=== PATIENT | female | born 1945 | race Asian ===

== ENCOUNTER 2019-03-06 20:40 | Inpatient (IN) | payer OTHER ==
[~2019-03-06] VITALS: Ht 157.5 cm; Wt 58.1 kg
[2019-03-06 20:45] VITALS: BP 167/98
--- NOTE | 2019-03-06 20:46 | NUR ---
PT SAMANTA ALS. TAKEN TO BED 2
--- NOTE | 2019-03-06 20:50 | NUR ---
73Y FEMALE BIBA FOR SUDDEN ONSET, NON PROVOKED C/P X1 HOUR. PT ALSO C/O LEG HEAVINESS AND NUMBNESS. NO FACIAL DROP SLURRED SPEECH. PT SPEAKS ROMANSH CONTACTED SON SONJA WHO IS IN [place]. PT AWAKE AND ALERT, RR EVEN UNLABORED, GCS 15, EDMD MADE AWARE, WILL CONTINUE TO MONITOR CLOSELY. PMH HTN, "HEART PROBLEMS"
[2019-03-06 21:40] LABS: BASOPHILS % (AUTO) 0.7 % (0.0-2.0); EOSINOPHILS % (AUTO) 0.7 % (0.0-4.0); HEMATOCRIT 31.8 % (36-48); HEMOGLOBIN 10.3 g/dL (12.0-16.0); LYMPHOCYTES # (AUTO) 1.6 K/uL (2.5-16.5); LYMPHOCYTES % (AUTO) 27.6 % (20.5-51.1); MEAN CORPUSCULAR HEMOGLOBIN 32 pg (27-31); MEAN CORPUSCULAR HGB CONC 33 g/dL (33-37); MEAN CORPUSCULAR VOLUME 99.4 fL (80-94); MONOCYTES # (AUTO) 0.5 K/uL (0.8-1.0); MONOCYTES % (AUTO) 8.1 % (1.7-9.3); NEUTROPHILS # (AUTO) 3.5 K/uL (1.8-7.7); NEUTROPHILS % (AUTO) 62.9 % (42.2-75.2); PLATELET COUNT (AUTO) 187 K/uL (140-450); WHITE BLOOD COUNT (AUTO) 5.6 K/uL (4.8-10.8)
[2019-03-06 21:51] LABS: ANION GAP 11.8 (8-16); CARBON DIOXIDE 27.1 mmol/L (21-32); CHLORIDE 108 mmol/L (98-107); CREATININE 1.1 mg/dL (0.6-1.3); GLUCOSE 117 mg/dL (74-106); POTASSIUM 3.9 mmol/L (3.5-5.1); SODIUM SERUM 143 mmol/L (136-145); UREA NITROGEN, BLOOD 18 mg/dL (7-18)
[2019-03-06 21:58] LABS: ALBUMIN 3.6 g/dL (3.4-5.0); ASPARTATE AMINOTRANSFERASE 24 U/L (15-37); LIPASE 287 U/L (73-393); TOTAL BILIRUBIN 0.7 mg/dL (0.0-1.0)
[2019-03-06 22:21] LABS: CREATINE KINASE MB 2.9 ng/mL (0-3.6)
--- NOTE | 2019-03-06 23:58 | NUR ---
PT TO CT WITH RN
[2019-03-07] MEDS ORDERED: [UNRECOGNIZED DRUG - CODE] PO (00:23)
[2019-03-07] MEDS ORDERED: DOCU-299 PO (00:23)
[2019-03-07] MEDS ORDERED: ACET-1088 PO (00:23)
[2019-03-07] MEDS ORDERED: LOSA100T51 PO (00:23)
[2019-03-07] MEDS ORDERED: ASPI-1718 PO (00:23)
[2019-03-07] MEDS ORDERED: BACL10TA4 PO (00:23)
[2019-03-07] MEDS ORDERED: MELO-176 PO (00:23)
[2019-03-07] MEDS ORDERED: C,E,1CAP2 PO (00:23)
[2019-03-07] MEDS ORDERED: HYDR-733 PO (00:23)
[2019-03-07] MEDS ORDERED: RASA1TAB3 PO (00:23)
[2019-03-07] MEDS ORDERED: SAFI100T PO (00:23)
[2019-03-07] MEDS ORDERED: CARB1TAB40 PO (00:23)
[2019-03-07] MEDS ORDERED: BETH25TA47 PO (00:23)
[2019-03-07] MEDS ORDERED: ATOR20TA PO (00:23)
--- NOTE | 2019-03-07 01:00 | NUR ---
PT RETURN FROM CT
--- NOTE | 2019-03-07 02:20 | NUR ---
RECIEVED REPORT FORM TIARA DUBOIS. ASSUMED CARE OF PT AT THIS TIME. PT SITTING UPRIGHT. VSS AT THIS TIME. WILL CONTINUE TO MONITOR.
[2019-03-07] MEDS ORDERED: ONDANSETRON 4 MG/2 ML VIAL IVP PRN (03:15)
[2019-03-07] MEDS ORDERED: ACETAMINOPHEN 325 MG TAB PO PRN (03:15)
--- NOTE | 2019-03-07 03:40 | NUR ---
Patient will be admitted to care of Dr. Reyes. Admited to [facility]. Patient went to room 127B. Belongings list completed. Report to TIARA Ricketts. Transfer of care at this time.
[2019-03-07 03:42] LABS: CHOL/HDL RATIO 2.1 (1-4.5); FREE T4 (FREE THYROXINE) 1.06 ng/dL (0.76-1.46); MAGNESIUM 1.8 mg/dL (1.8-2.4); PHOSPHORUS 3.4 mg/dL (2.5-4.9); THYROID STIMULATING HORMONE 1.36 uIU/mL (0.34-3.74)
--- NOTE | 2019-03-07 03:45 | NUR ---
PT BROUGHT UP BY AMANDA WITH CINTIA MENJIVAR, PT WAS ASSISTED TO TOILET UPON REQUEST AND THEN ASSISTED BACK TO BED. SHE WAS PLACED ON FALLS PROTOCOL. SKIN INTACT AND NO S/S OF PAIN OR DISTRESS NOTED. V/S FOLLOWS T 97 P 78 R 18 B/P 158/79 02 99% ON ROOM AIR.
[2019-03-07 04:00] VITALS: BP 158/79
--- NOTE | 2019-03-07 04:10 | NUR ---
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 PT IS AWARE OF PERSON AND THAT SHE IS IN THE HOSPITAL, PT THOUGHT SHE WAS IN [place]. PT ORIENTED TO PLACE, HOWEVER SHE IS AWARE OF THE DATE AND TIME OF DAY, HOWEVER SHE HAS PERIODS OF REPEATING HERSELF AND HAVING SOME DIFFICULTIES ANSWERING QUESTIONS. PT DOES HAVE SKIN INTACT AND A 20G INTACT ON LEFT AC. BUT SHE DOES HAVE DIFFICULTY WALKING , PT STATES SHE USES A WALKER AT HOME. PT DENIES PAIN AT THIS TIME AND ALL REQUESTED NEEDS ATTENDED.
[2019-03-07 06:07] LABS: ANION GAP 12.5 (8-16); CARBON DIOXIDE 28.3 mmol/L (21-32); CHLORIDE 108 mmol/L (98-107); CREATININE 0.9 mg/dL (0.6-1.3); GLUCOSE 98 mg/dL (74-106); POTASSIUM 3.8 mmol/L (3.5-5.1); SODIUM SERUM 145 mmol/L (136-145); UREA NITROGEN, BLOOD 15 mg/dL (7-18)
[2019-03-07 06:13] LABS: MAGNESIUM 1.8 mg/dL (1.8-2.4)
--- NOTE | 2019-03-07 06:34 | NUR ---
PT IN BED SLEEPING NO S/S OF PAIN OR DISTRESS NOTED ALL FALLS PROTOCOL IN PLACE. AND CALL CHONG IN REACH.
[2019-03-07 06:37] LABS: EOSINOPHILS # (AUTO) 0.1 K/uL (0-0.4); EOSINOPHILS % (AUTO) 1.2 % (0.0-4.0); HEMATOCRIT 31.2 % (36-48); HEMOGLOBIN 10.1 g/dL (12.0-16.0); LYMPHOCYTES # (AUTO) 1.4 K/uL (2.5-16.5); LYMPHOCYTES % (AUTO) 28.3 % (20.5-51.1); MEAN CORPUSCULAR HEMOGLOBIN 33 pg (27-31); MEAN CORPUSCULAR HGB CONC 33 g/dL (33-37); MEAN CORPUSCULAR VOLUME 100.1 fL (80-94); MONOCYTES # (AUTO) 0.6 K/uL (0.8-1.0); MONOCYTES % (AUTO) 10.8 % (1.7-9.3); NEUTROPHILS % (AUTO) 58.7 % (42.2-75.2); PHOSPHORUS 3.2 mg/dL (2.5-4.9); PLATELET COUNT (AUTO) 187 K/uL (140-450); RED BLOOD CELL COUNT(AUTO) 3.11 MIL/uL (4.20-5.40); WHITE BLOOD COUNT (AUTO) 5.1 K/uL (4.8-10.8)
--- NOTE | 2019-03-07 07:04 | NUR ---
PT USED CALL CHONG FOR ASSISTANCE TO THE COMMODE AND BACK , PT IN STABLE CONDITION, PT ASSISTED BACK TO BED WITH CALL CHONG IN REACH, NO S/S OF PAIN OR DISTRES NOTED. WILL ENDORSE PLAN OF CARE, TO AM RELIEVING NURSE, PT INSTABLE CONDITION.
--- NOTE | 2019-03-07 07:25 | NUR ---
RECEIVED PT FROM SURVEILLANCE SYSTEMS ANALYST NURSE, MARCEL, PT IS ASLEEP AND LYING ON THE BED WITH SIDE RAILS UP AND CALL LIGHT WITHIN REACH, IV LINE ON THE LEFT AC G. 20 ON SALINE LOCK , RESPIRATION IS EVEN AND NO SIGN OF DISTRESS NOTED. WILL MONITOR PT.
[2019-03-07 08:00] VITALS: BP 154/82
--- NOTE | 2019-03-07 08:21 | NUR ---
PATIENT HAS BEEN SCREENED AND CATEGORIZED MODERATE NUTRITION RISK. PATIENT WILL BE SEEN WITHIN 3-5 DAYS OF ADMISSION. 03/09/19 03/11/[address]
[2019-03-07] MEDS ORDERED: VIT E PO SCH (09:00)
[2019-03-07] MEDS ORDERED: VITAMIN E 400 UNIT PO SCH (09:00)
[2019-03-07] MEDS ORDERED: CARBIDOPA/LEVODOPA 25/250 MG 1 TAB PO SCH ×2 (09:00→13:00)
[2019-03-07] MEDS ORDERED: [UNRECOGNIZED DRUG - OTHER] PO SCH (09:00)
[2019-03-07] MEDS: BETHANECHOL 25 MG TAB PO SCH (09:06)
[2019-03-07] MEDS: ASPIRIN 81 MG TAB.CHEW PO SCH (09:07)
[2019-03-07] MEDS: DOCUSATE SODIUM 100 MG GELCAP PO SCH ×2 (09:07→21:13)
[2019-03-07] MEDS: ATORVASTATIN 20 MG TAB PO SCH (09:07)
[2019-03-07] MEDS: hydrALAZINE 25 MG TAB PO SCH ×4 (09:08→21:13)
[2019-03-07] MEDS: HYDROcodone/APAP 7.5/325 MG 1 TAB PO PRN ×2 (09:08→13:32)
--- NOTE | 2019-03-07 09:08 | NUR ---
PT IS AWAKE AND ORAL MEDICATIONS WERE GIVEN, PARAMETERS CHECKED, AND PT TOLERATED IT. WILL MONITOR PT.
[2019-03-07] MEDS: LOSARTAN 50 MG TAB PO SCH (09:09)
[2019-03-07] MEDS ORDERED: COMMUNICATION ORDER MC SCH ×2 (09:15)
[2019-03-07] MEDS: VITAMIN E 200 IU CAPLF PO SCH (09:27)
[2019-03-07] MEDS ORDERED: [UNRECOGNIZED DRUG - OTHER] PO SCH (10:30)
[2019-03-07] MEDS ORDERED: OCUVITE SOFTGEL PO SCH (10:30)
[2019-03-07] MEDS ORDERED: RASAGILINE 1MG TAB PO SCH (10:30)
[2019-03-07 12:00] VITALS: BP 142/65
--- NOTE | 2019-03-07 12:16 | NUR ---
PER DR. MARTINEZ, DC PLAN IS FOR TOMORROW.
--- NOTE | 2019-03-07 12:49 | NUR ---
PT IS AWAKE AND EATING HER LUNCH, BP MEDICATION WAS GIVEN FOR BP OF 164/91, PULSE IS 101, OS SATURATION IS 95%. WILL MONITOR PT.
--- NOTE | 2019-03-07 13:15 | NUR ---
ECHO IS BEING DONE TO PT NOW.
[2019-03-07] MEDS: BACLOFEN 10 MG TAB PO PRN (13:31)
--- NOTE | 2019-03-07 13:32 | NUR ---
PT WAS GIVEN MUSCLE RELAXANT AND PAIN MEDICATIONS NOW.
--- NOTE | 2019-03-07 13:39 | NUR ---
ORAL MEDICATION WAS GIVEN TO PT NOW.
[2019-03-07] MEDS: LEVODOPA PO SCH ×2 (13:40→17:25)
[2019-03-07] MEDS: CARBIDOPA PO SCH ×2 (13:40→17:25)
--- NOTE | 2019-03-07 15:41 | NUR ---
SW attempted to conduct assessment with patient. Patient was asleep. SW contacted patient's emergency contact/son Marshall [phone]. SW left voicemail. SW will follow up.
[2019-03-07 16:00] VITALS: BP 133/78
--- NOTE | 2019-03-07 17:25 | NUR ---
PT IS AWAKE AND ORAL MEDICVATION WAS GIVEN, PARAMETER CHECKED. WILL MONITOR PT.
--- NOTE | 2019-03-07 18:31 | NUR ---
PT IS AWAKE AND HAD VOMUTED AND ZOFRAN WAS GIVEN VIA IV PUSH. WILL MONITOR PT.
--- NOTE | 2019-03-07 18:41 | NUR ---
PT IS SWEQATING AND BLOOD GLUCOSE CHECK WAS DONE AND RESULT IS 112. WILL MONITOR PT.
--- NOTE | 2019-03-07 19:05 | NUR ---
RECEIVED PT FROM DEBBIE MENJIVAR PT IS ASLEEP AND LYING ON THE BED WITH SIDE RAILS UP AND CALL LIGHT WITHIN REACH, IV LINE ON THE LEFT AC G. 20 ON SALINE LOCK , RESPIRATION IS EVEN AND NO SIGN OF DISTRESS NOTED. WILL MONITOR PT.
--- NOTE | 2019-03-07 19:15 | NUR ---
ENDORSED PT TO MINING CAPTAIN NURSEGUANAKITO FOR CONTINUITY OF CARE.
[2019-03-07 20:00] VITALS: BP 125/69
[2019-03-07 23:49] LABS: APPEARANCE,URINE CLEAR (CLEAR); BILIRUBIN,URINE NEGATIVE (NEGATIVE); BLOOD, URINE NEGATIVE (NEGATIVE); COLOR,URINE YELLOW (YELLOW); LEUKOCYTE ESTERASE ,URINE NEGATIVE (NEGATIVE); NITRITE, URINE NEGATIVE (NEGATIVE); UGLUCOSE NEGATIVE (NEGATIVE)
[2019-03-08] VITALS: BP 122/79
[2019-03-08 04:12] VITALS: BP 126/68
[2019-03-08 06:45] LABS: ANION GAP 13.8 (8-16); CARBON DIOXIDE 28.6 mmol/L (21-32); CHLORIDE 105 mmol/L (98-107); CREATININE 0.9 mg/dL (0.6-1.3); GLUCOSE 93 mg/dL (74-106); POTASSIUM 4.4 mmol/L (3.5-5.1); SODIUM SERUM 143 mmol/L (136-145); UREA NITROGEN, BLOOD 14 mg/dL (7-18)
--- NOTE | 2019-03-08 07:05 | NUR ---
report given to Valentina MENJIVAR
[2019-03-08 07:14] LABS: BASOPHILS % (AUTO) 0.8 % (0.0-2.0); EOSINOPHILS # (AUTO) 0.1 K/uL (0-0.4); EOSINOPHILS % (AUTO) 1.4 % (0.0-4.0); HEMATOCRIT 34.1 % (36-48); HEMOGLOBIN 11.2 g/dL (12.0-16.0); LYMPHOCYTES # (AUTO) 1.6 K/uL (2.5-16.5); LYMPHOCYTES % (AUTO) 29.2 % (20.5-51.1); MEAN CORPUSCULAR HEMOGLOBIN 33 pg (27-31); MEAN CORPUSCULAR HGB CONC 33 g/dL (33-37); MEAN CORPUSCULAR VOLUME 99.7 fL (80-94); MONOCYTES # (AUTO) 0.5 K/uL (0.8-1.0); MONOCYTES % (AUTO) 8.7 % (1.7-9.3); NEUTROPHILS # (AUTO) 3.2 K/uL (1.8-7.7); NEUTROPHILS % (AUTO) 59.9 % (42.2-75.2); PLATELET COUNT (AUTO) 201 K/uL (140-450); RED BLOOD CELL COUNT(AUTO) 3.42 MIL/uL (4.20-5.40); RED CELL DISTRIBUTION WIDTH 13.3 % (11.6-13.7); WHITE BLOOD COUNT (AUTO) 5.3 K/uL (4.8-10.8)
--- NOTE | 2019-03-08 07:36 | NUR ---
RECEIVED HAND OFF REPORT FROM PM RN PT APPEARS STABLE AND IN NO APPARENT DISTRESS. ALL SAFETY MEASURES ARE IN PLACE WILL CONTINUE TO MONITOR.
[2019-03-08 08:15] VITALS: BP 140/62
[2019-03-08] MEDS ORDERED: OCUVITE SOFTGEL PO SCH (09:00)
[2019-03-08] MEDS ORDERED: [UNRECOGNIZED DRUG - OTHER] PO SCH (09:00)
[2019-03-08] MEDS ORDERED: RASAGILINE 1MG TAB PO SCH (09:00)
[2019-03-08] MEDS: BETHANECHOL 25 MG TAB PO SCH (09:05)
[2019-03-08] MEDS: LOSARTAN 50 MG TAB PO SCH (09:05)
[2019-03-08] MEDS: ATORVASTATIN 20 MG TAB PO SCH (09:05)
[2019-03-08] MEDS: ASPIRIN 81 MG TAB.CHEW PO SCH (09:06)
[2019-03-08] MEDS: hydrALAZINE 25 MG TAB PO SCH ×4 (09:06→20:44)
[2019-03-08] MEDS: DOCUSATE SODIUM 100 MG GELCAP PO SCH ×2 (09:06→20:44)
[2019-03-08] MEDS: LEVODOPA PO SCH ×3 (09:08→18:11)
[2019-03-08] MEDS: CARBIDOPA PO SCH ×3 (09:08→18:11)
--- NOTE | 2019-03-08 09:34 | NUR ---
FREQUENT ROUNDING ON PT PT APPEARS STABLE AND IN NO APPARENT DISTRESS. ALL SAFETY MEASURES ARE IN PLACE WILL CONTINUE TO MONITOR
[2019-03-08] MEDS: VITAMIN E 200 IU CAPLF PO SCH (10:11)
--- NOTE | 2019-03-08 10:54 | NUR ---
CONTACTED PATIENT'S SON RAEGAN MILLAN AT [phone], NO ANSWER. LEFT MESSAGE REGARDING DC PLAN.
--- NOTE | 2019-03-08 11:34 | NUR ---
FREQUENT ROUNDING ON PT PT APPEARS STABLE AND IN NO APPARENT DISTRESS. ALL SAFETY MEASURES ARE IN PLACE WILL CONTINUE TO MONITOR
--- NOTE | 2019-03-08 11:39 | NUR ---
RECEIVED A VOICEMAIL FROM PATIENT'S SON RAEGAN MILLAN. RETURNED AND ABLE TO SPEAK TO HIM REGARDING PATIENT'S DC PLAN. HE STATED WHATEVER IS BEST FOR HIS MOTHER. HE ALSO STATED THAT HER SISTER WANTS THEIR MOTHER HOME, BUT HIS CONCERN IS THAT THE PATIENT AND HIS SISTER ALMOST FELL THE LAST TIME. HE ALSO STATED THAT HIS SISTER IS WEAK WELL. I TOLD HIM I WILL DISCUSS HIS CONCERNS WITH THE PHYSICIAN. HE ALSO STATED THAT HE DOES NOT HAVE A POWER OF GRINDER HAND, IT IS JUST BECAUSE HE IS THE ONLY ONE WHO CAN SPEAK [place] IN THE FAMILY. DR MARTINEZ MADE AWARE.
[2019-03-08 12:35] VITALS: BP 140/64
--- NOTE | 2019-03-08 13:46 | NUR ---
FREQUENT ROUNDING ON PT PT APPEARS STABLE AND IN NO APPARENT DISTRESS. ALL SAFETY MEASURES ARE IN PLACE WILL CONTINUE TO MONITOR
[2019-03-08 15:16] LABS: FOLIC ACID 19.9 ng/mL (>3.0)
--- NOTE | 2019-03-08 15:49 | NUR ---
FREQUENT ROUNDING ON PT PT APPEARS STABLE AND IN NO APPARENT DISTRESS. ALL SAFETY MEASURES ARE IN PLACE WILL CONTINUE TO MONITOR
[2019-03-08 16:45] VITALS: BP 122/62
--- NOTE | 2019-03-08 17:34 | NUR ---
FREQUENT ROUNDING ON PT PT APPEARS STABLE AND IN NO APPARENT DISTRESS. ALL SAFETY MEASURES ARE IN PLACE WILL CONTINUE TO MONITOR
--- NOTE | 2019-03-08 19:26 | NUR ---
ENDORSED PT TO PM RN PT APPEARS STABLE AND IN NO APPARENT DISTRESS. ALL SAFETY MEASURES ARE IN PLACE. BED ALARM ON PT SALINE LOCKED.
[2019-03-08 20:33] VITALS: BP 130/75
--- NOTE | 2019-03-08 20:45 | NUR ---
PT. VITAL SIGNS TAKEN AND TOLERATED P.O. MEDICATIONS ADMINISTERED. ABLE TO SAY YES . GOOD AFFECT. SMILING. NO NOTED RESTLESSNESS OR SOB AT THIS TIME. NO CHEST PAIN COMPLAINTS. TELEMETRY MONITORING. WATCHING TV AT THIS TIME. BED ALARM ON.
--- NOTE | 2019-03-08 21:30 | NUR ---
PER SPEECH THERAPY ASSISTANT PT. BEDDING CHANGED RT WET WITH URINE. NO COMPLAINTS DONE. NO RESTLESSNESS REPORTED TO ME BY CNAS. NEEDS WILL BE ANTICIPATED AND WILL BE MET.
--- NOTE | 2019-03-08 22:22 | NUR ---
PT. ASSISTED TO BEDSIDE COMMODE RT WITH WEAKNESS AND WITH PARKINSON'S DSE. URINATED . HELPED GO BACK TO HER BED. NO COMPLAINT OF CHEST PAIN DONE. BED ALARM ON , CALL LIGHT ON AND RE-ORIENTED TO CALL LIGHT USE AND PLACED BESIDE HER IN BED. NOTED PT. ABLE TO SAY SOME WORDS IN URD[place]. SHE TOLD ME WHEN SHE SAT ON BSC TO WAIT , SIT AND POINTED TO CHAIR . ABLE TO SAY YES. TELEMETRY MONITORING. NEEDS WILL BE ANTICIPATED AND WILL BE MET. BED ON LOWEST POSITION. 2 SIDE RAILS UP FOR SAFETY. KEPT WARM AND COMFORTABLE.
[2019-03-08] MEDS: BACLOFEN 10 MG TAB PO PRN (23:24)
--- NOTE | 2019-03-08 23:24 | NUR ---
PT. STILL AWAKE AT THIS TIME. NOTED PT. WITH TREMORS IN HANDS AND LEGS. MEDICATED WITH BACLOFEN P.O. TOLERATED WELL.
[2019-03-09] VITALS: BP 126/68
--- NOTE | 2019-03-09 01:30 | NUR ---
PT. SLEEPING. NO RESTLESSNESS NOTED. BED ALARM ON. CALL LIGHT WITH IN REACH.
--- NOTE | 2019-03-09 03:00 | NUR ---
SLEEPING. NO RESTLESSNESS. TELEMETRY MONITORING AND BED ALARM ON .
[2019-03-09 04:11] VITALS: BP 130/72
--- NOTE | 2019-03-09 04:13 | NUR ---
AM PERSONAL HYGIENE RENDERED BY FISH TRAPPER. WOKE UP EASILY. NO RESTLESSNESS. NO SOB. NO CHEST PAIN NOTED OR COMPLAINED. TELEMETRY MONITORING. BED ALARM ON.
--- NOTE | 2019-03-09 06:02 | NUR ---
PT. ASSISTED TO BSC. NO BM THIS SHIFT. BED ALARM ON. CALL LIGHT WITH IN REACH. NO PAIN COMPLAINTS. TELEMETRY MONITORING. WILL ENDORSE TO THE AM RN FOR CONTINUITY OF CARE.
--- NOTE | 2019-03-09 07:20 | NUR ---
Received report from pm nurse Marlena. Pt resting in bed, awake, verbally responsive in [place]. No signs of distress. No c/o discomfort. Left AC IV saline lock asymptomatic. Bed alarm on. Call light within reach. Pt asked in hebrew "am I going to halfway today?" Informed pt that SS still working on placement. Pt verbalized understanding.
[2019-03-09 08:00] VITALS: BP 157/78
[2019-03-09] MEDS: LEVODOPA PO SCH ×3 (09:00→17:22)
[2019-03-09] MEDS: CARBIDOPA PO SCH ×3 (09:00→17:22)
[2019-03-09] MEDS: VITAMIN E 200 IU CAPLF PO SCH (09:00)
--- NOTE | 2019-03-09 09:00 | NUR ---
Report given to nurse Gisella. Pt resting in bed, awake, no signs of distress. Bed alarm on. Call light within reach.
--- NOTE | 2019-03-09 09:01 | NUR ---
RECEIVED REPORT. PT AWAKE, ALERT. NO S/S OF RESPIRATORY DISTRESS NOTED. WILL CONTINUE TO MONITOR.
[2019-03-09] MEDS: DOCUSATE SODIUM 100 MG GELCAP PO SCH ×2 (10:14→22:10)
[2019-03-09] MEDS: ASPIRIN 81 MG TAB.CHEW PO SCH (10:14)
[2019-03-09] MEDS: LOSARTAN 50 MG TAB PO SCH (10:15)
[2019-03-09] MEDS: BETHANECHOL 25 MG TAB PO SCH (10:16)
[2019-03-09] MEDS: hydrALAZINE 25 MG TAB PO SCH ×4 (10:16→21:00)
[2019-03-09] MEDS: ATORVASTATIN 20 MG TAB PO SCH (10:17)
--- NOTE | 2019-03-09 10:45 | NUR ---
MET WITH THE PATIENT AT THE BEDSIDE WITH MEDICAL STUDENT DANIELLE WASH MILL OPERATOR. WE DISCUSSED HER DISCHARGE PLAN TO SNF FOR PHYSICAL THERAPY. SHE STATED SHE WANTS TO GO HOME IN [place] WITH HER DAUGHTER. EXPLAINED TO HER THAT IT IS NOT SAFE FOR HER TO GO HOME WITH HER DAUGHTER, BECAUSE IS DAUGHTER IS TOO WEAK TO TAKE CARE OF HER. I ALSO INFORMED HER THAT IT IS HER SON'S RAEGAN'S CONCERN WELL. SHE STATED THAT IT IS NOT CONVENIENT FOR HER TO GO TO A FACILITY THAT DOES NOT SPEAK [place]. I EXPLAINED IT TO HER THAT THEY HAVE A WASH MILL OPERATOR PHONE TO HELP. SHE SAID IT IS NOT CONVENIENT. DR. MAYA MADE AWARE. Addendum: 03/09/19 at 1128 by Sonia Titus CM CONTACTED PATIENT'S SON RAEGAN AT [phone], NO ANSWER. LEFT A MESSAGE.
[2019-03-09 12:00] VITALS: BP 92/40
--- NOTE | 2019-03-09 12:55 | NUR ---
HOLD PT'S BP MED HYDRALAZINE DUE TO PT'S BP 92/40
--- NOTE | 2019-03-09 14:07 | NUR ---
03/09/19 RD INITIAL ASSESSMENT COMPLETED PLEASE REFER TO NUTRITION ASSESSMENT UNDER CARE ACTIVITY FOR ESTIMATED NUTRITIONAL NEEDS. 1. CONTINUE CARDIAC DIET TOLERATED 2. RD TO FOLLOW-UP 3-5 DAYS, MODERATE RISK VONNIE SINGH RD
--- NOTE | 2019-03-09 15:30 | NUR ---
PT AWAKE, ALERT. NO SOB NOTED.
[2019-03-09 16:00] VITALS: BP 110/52
--- NOTE | 2019-03-09 18:50 | NUR ---
PT'S RESTING IN BED. NO S/S OF RESPIRATORY DISTRESS NOTED.
--- NOTE | 2019-03-09 19:20 | NUR ---
RECEIVED PT FROM DAY SHIFT NURSE PT AOX2 COOPERATIVE TO FOLLOW COMMANDS ON TELEMETRY SR PT WITH PACKAGE YARNS DRYING MACHINE OPERATOR USES BSC , REPOSITIONED INITIAL ASSESSMENT DONE
[2019-03-09 20:00] VITALS: BP 110/56
--- NOTE | 2019-03-09 22:00 | NUR ---
PT COOPERATIVE TO FOLLOW DOCMMNDS ON TELE SR, ;NOT DISTRESS NOTED
[2019-03-10] VITALS: BP 149/69
--- NOTE | 2019-03-10 01:00 | NUR ---
PT IS ASSISTED TO USED BSC VOIDING WELL ONTMICHAEL SR
[2019-03-10 04:00] VITALS: BP 134/65
--- NOTE | 2019-03-10 04:00 | NUR ---
SPONGE BATH GIVEN LINEN CHANGED REPOSITIONED NOT DISTRESS NOTED ON TELEMETRY SR
--- NOTE | 2019-03-10 06:32 | NUR ---
PT AWAKE NOT FEVER ,REMAIN STABLE AT THIS TIME O;N TELMETRY SR COOPERATIVE TO FOLLOW DR MCNALLY
--- NOTE | 2019-03-10 07:03 | NUR ---
RECEIVED REPORT FROM MASSOTHERAPIST NURSE. PT AWAKE, ORIENTED X12 TO PERSON, NO C/O PAIN AT THIS TIME. PT ON CLINICAL REVIEW SPECIALIST. IV ON RT WRIST 22 GA RUNNING IVF PER ORDER. RESPIRATIONS EVEN AND UNLABORED ON O2 2L VIA N/C. ABD SOFT, BS ACTIVE. PT ON FALL RISK PRECAUTIONS, SAFETY MEASURES IN PLACE, CALL LIGHT WITHIN REACH. SKIN IS INTACT, WARM TO TOUCH. REVIEWED POC WITH PT, PT VERBALIZED UNDERSTANDING. Addendum: 03/10/19 at 0736 by Beronica Moreira RN CLARIFICATION OF OPENING NOTE ABOVE: PT AWAKE, ORIENTED X2 TO PERSON AND PLACE. IV ON LT AC 20 GA RUNNING IVF PER ORDER. RESPIRATIONS EVEN AND UNLABORED ON RA.
[2019-03-10 08:00] VITALS: BP 139/80
[2019-03-10] MEDS: LOSARTAN 50 MG TAB PO SCH (09:01)
[2019-03-10] MEDS: hydrALAZINE 25 MG TAB PO SCH ×3 (09:01→17:00)
[2019-03-10] MEDS: DOCUSATE SODIUM 100 MG GELCAP PO SCH (09:01)
--- NOTE | 2019-03-10 09:01 | NUR ---
PT GIVEN MORNING MEDICATIONS, REVIEWED INDICATIONS AND POTENTIAL SIDE EFFECTS WITH PT. PT AOX2 TO PERSON AND PLACE, WILL NEED REMINDERS AND REORIENTATION. PT IS AWARE THAT SHE WILL BE DISCHARGED TODAY.
[2019-03-10] MEDS: ATORVASTATIN 20 MG TAB PO SCH (09:02)
[2019-03-10] MEDS: BETHANECHOL 25 MG TAB PO SCH (09:02)
[2019-03-10] MEDS: ASPIRIN 81 MG TAB.CHEW PO SCH (09:02)
[2019-03-10] MEDS: VITAMIN E 200 IU CAPLF PO SCH (09:05)
[2019-03-10] MEDS: LEVODOPA PO SCH ×3 (09:06→17:01)
[2019-03-10] MEDS: CARBIDOPA PO SCH ×3 (09:06→17:01)
--- NOTE | 2019-03-10 09:45 | NUR ---
ASSISTED PT TO BSC TO VOID. PT HAS GENERALIZED WEAKNESS AND IMPAIRED GAIT. PT IS AWARE TO NOTIFY NURSE WHEN SHE NEEDS TO USE BSC.
[2019-03-10 12:00] VITALS: BP 99/54
--- NOTE | 2019-03-10 14:05 | NUR ---
USED [employer]GRAPH TINTER [employer]/[phone]. PT HAS NO DISCHARGE PRESCRIPTIONS, GIVEN DISCHARGE INSTRUCTIONS. ALL PAPERWORK SIGNED, ALL QUESTIONS ANSWERED. PER ALECIA/DAUGHTER, PICKUP WILL BE BETWEEN [phone]. PT IS AWARE. PT STATES SHE WOULD LIKE TO RECEIVE PNA VACCINE.
--- NOTE | 2019-03-10 14:11 | NUR ---
PT STATES "NO WANT PNA VACCINE". WILL NOTIFY PHYSICIAN.
--- NOTE | 2019-03-10 15:19 | NUR ---
PT SITTING UP IN BED, OCCUPIED IN PHONE. HAS NO SIGNS OF DISTRESS AT THIS TIME.
--- NOTE | 2019-03-10 15:47 | NUR ---
MET WITH THE PATIENT AT THE BEDSIDE WITH MEDICAL STUDENT BACK TO HELP ME TRANSLATE. SHE PROVIDED US WITH THE ADDRESS [address] [place] [address]. TRIED TO CONTACT PATIENT'S DAUGHTER THROUGH THE PATIENT'S PHONE, NO ANSWER. CONTACTED PATIENT'S SON RAEGAN MILLAN TO CONFIRM ADDRESS, NO ANSWER. LEFT MESSAGE. PROVIDED THE ADDRESS TO [facility] OF [facility]. PER ELIOT THEY ARE ABLE TO ACCEPT PATIENT.
[2019-03-10 16:00] VITALS: BP 102/53
--- NOTE | 2019-03-10 18:00 | NUR ---
PT HAS BEEN DISCHARGED. ALECIA/DAUGHTER VERBALIZED THAT SHE WILL SCHEDULE FOLLOW-UP APPT WITH PCP WITHIN 5-7 DAYS. ALL BELONGINGS AND HOME MEDICATIONS IN PT POSSESSION. WRISTBANDS AND TELE MONITOR REMOVED. PT TRANSFERRED OUT OF UNIT VIA WHEELCHAIR, RN AT SIDE. PT IS IN STABLE CONDITION.
== END 2019-03-10 18:00 | disposition home health service (06) | DRG 392 ==
LOC: MED 20:40 → MMU 03-07 03:13 → MTU 03-09 15:47
PROVIDERS: ADMIT General Practice; ATTEND General Practice
DX: K21.9 Gastro-esophageal reflux disease without esophagitis (principal); D53.9 Nutritional anemia, unspecified; R33.9 Retention of urine, unspecified; G20 Parkinson's disease; E78.5 Hyperlipidemia, unspecified; I10 Essential (primary) hypertension; Z79.899 Other long term (current) drug therapy; Z79.82 Long term (current) use of aspirin; Z90.49 Acquired absence of other specified parts of digestive tract
CPT/HCPCS: 36415; 71045; 71270; 80048; 80053; 81003; 82150; 82550; 82553; 82607; 82746; 82948; 83036; 83690; 83735; 83880; 84100; 84439; 84443; 84484; 85025; 85045; 87081; 93005; 97110; 97116; 97161-GP; 97530; 99285; J1644; J2405; Q0092